=== PATIENT | female | born 1945 | race Caucasian/White ===

== ENCOUNTER 2020-05-22 09:52 | Emergency (ER) | payer MEDICARE, BC ==
[2020-05-22] MEDS ORDERED: HYDROmorphone 1 MG/ML Syringe IM ONE (10:28)
[2020-05-22] MEDS ORDERED: Ketorolac 30 MG/ML SDV IM ONE (10:28)
--- NOTE | 2020-05-22 11:54 | EDM.PDOC ---
ED HPI GENERAL MEDICAL PROBLEM - General Chief Complaint: Lower Extremity Injury/Pain Stated Complaint: LEFT SIDE LEG PAIN Time Seen by Provider: 05/22/20 10:17 Source of Information: Reports: Patient History Limitations: Reports: No Limitations - History of Present Illness INITIAL COMMENTS - FREE TEXT/NARRATIVE: The patient presents with left low back pain that radiates down her left leg. This started last week. It is worse today. She had no injury. She said she did have the pain a couple weeks ago on the right side. She saw her doctor Dr Pacheco and she did x-rays and an US and that looked good. She put her on baclofen and naproxyn. She says the medicine is not helping. She has no bowel or bladder problems. She has no numbness or weakness. She has no fever, chills, cough, congestion, runny nose, chest pain, shortness of breath, abdominal pain, nausea or vomiting. Onset: Gradual Duration: Week(s): Location: Reports: Back, Lower Extremity, Left Quality: Reports: Burning, Sharp Severity: Moderate Improves with: Reports: Immobilization Worsens with: Reports: Movement Context: Denies: Trauma Associated Symptoms: Reports: No Other Symptoms Left Leg Pain Score (Numeric/FACES): 10 - Related Data Allergies Allergy/AdvReac Type Severity Reaction Status Date / Time No Known Allergies Allergy Verified 05/22/20 10:15 Home Meds: Home Meds Baclofen 10 mg PO TID 05/22/20 [History] Hydrocodone/Acetaminophen [Hydrocodone-Acetamin 5-325 mg] 1 - 2 each PO Q6HR PRN #20 tablet 05/22/20 [Rx] Nabumetone [Relafen Ds] 500 mg PO BID 05/22/20 [History] Naproxen 500 mg PO BID PRN 05/22/20 [History] Review of Systems - Review of Systems Review Of Systems: See Below Constitutional: Reports: No Symptoms Eyes: Reports: No Symptoms Ears: Reports: No Symptoms Nose: Reports: No Symptoms Mouth/Throat: Reports: No Symptoms Respiratory: Reports: No Symptoms Cardiovascular: Reports: No Symptoms GI/Abdominal: Reports: No Symptoms Genitourinary: Reports: No Symptoms Musculoskeletal: Reports: Back Pain (Left lower back with pain radiating down her left leg) Skin: Reports: No Symptoms ED EXAM, GENERAL - Physical Exam Exam: See Below Exam Limited By: No Limitations General Appearance: Alert, No Apparent Distress Ears: Normal External Exam Nose: Normal Inspection Head: Atraumatic, Normocephalic Neck: Normal Inspection Respiratory/Chest: No Respiratory Distress, Lungs Clear, Normal Breath Sounds Cardiovascular: Regular Rate, Rhythm, No Edema, No Murmur GI/Abdominal: Soft, Non-Tender, No Organomegaly, No Mass Back Exam: Other (Mild pain upon palpation to the left lower back) Extremities: Non-Tender Neurological: Alert, Oriented, No Motor/Sensory Deficits Course - Vital Signs Last Recorded V/S: Last Vital Signs Temp 97.8 F 05/22/20 10:07 Pulse 67 05/22/20 10:07 Resp 20 05/22/20 10:07 BP 163/69 H 05/22/20 10:07 Pulse Ox 100 05/22/20 10:07 - Orders/Labs/Meds Meds: Medications Discontinued Medications Generic Name Dose Route Start Last Admin Trade Name Freq PRN Reason Stop Dose Admin Hydromorphone HCl 1 mg 05/22/20 10:28 05/22/20 12:07 Dilaudid IM 05/22/20 10:29 1 mg ONETIME ONE Administration Ketorolac Tromethamine 30 mg 05/22/20 10:28 05/22/20 12:09 Toradol IM 05/22/20 10:29 30 mg ONETIME ONE Administration - Re-Assessments/Exams Free Text/Narrative Re-Assessment/Exam: 05/22/20 11:53 I ordered toradol 30mg IM and dilaudid 0.5mg IM. 05/22/20 12:28 The shots did help. I will get her some hydrocodone to help with the pain. She will be following up with Dr Pacheco. Departure - Departure Time of Disposition: 12:30 Disposition: Home, Self-Care 01 Condition: Good Clinical Impression: Low back pain Qualifiers: Chronicity: acute Back pain laterality: left Sciatica presence: with sciatica Sciatica laterality: sciatica of left side Qualified Code(s): M54.42 - Lumbago with sciatica, left side - Discharge Information *PRESCRIPTION DRUG MONITORING PROGRAM REVIEWED*: Not Applicable *COPY OF PRESCRIPTION DRUG MONITORING REPORT IN PATIENT DUSTIN: Not Applicable Prescriptions: Hydrocodone/Acetaminophen [Hydrocodone-Acetamin 5-325 mg] 1 - 2 each PO Q6HR PRN #20 tablet PRN Reason: Pain Referrals: Bridget Pacheco MD [Primary Care Provider] - 1 Week Forms: ED Department Discharge Additional Instructions: Take your medication as prescribed. If that does not work, try the hydrocodone. Please return if you are worse. Sepsis Event Note (ED) - Evaluation Sepsis Screening Result: No Definite Risk - Focused Exam Vital Signs: Vital Signs Temp Pulse Resp BP Pulse Ox 05/22/20 10:07 97.8 F 67 20 163/69 H 100
== END 2020-05-22 12:45 | disposition home or self-care (01) ==
LOC: JD.ED 09:52
DX: M54.42 Lumbago with sciatica, left side (principal); Z79.899 Other long term (current) drug therapy
CPT/HCPCS: 96372; 99283; J1170; J1885